=== PATIENT | male | born 1965 | race Caucasian/White ===

== ENCOUNTER → 2016-11-28 | Outpatient (CLI) | payer BC ==
[2016-11-28 16:19] LABS: BASO % 0.4 %; BASO ABS # 0.04 K/uL (0-0.2); COMPLETE YES; EOS % 1.4 %; HEMATOCRIT 45.1 % (42-52); IG% 0.8 %; LYMPH % 29.1 %; LYMPH ABS # 3.04 K/uL (1.2-3.4); MEAN CELL VOLUME 85.1 fL (80-100); MEAN CORPUSCULAR HEMOGLOBIN 28.7 pg (25-34); MEAN CORPUSCULAR HGB CONC 33.7 g/dl (32-36); MEAN PLATELET VOLUME 11.5 fL (7.4-10.4); MONO % 5.6 %; NEUT % 62.7 %; PLATELET COUNT 242 K/uL (130-400); WHITE BLOOD COUNT 10.44 K/uL (4.8-10.8)
[2016-11-28 16:52] LABS: BLOOD UREA NITROGEN 19 mg/dl (7-18); BUN/CREATININE RATIO 23.5 (10-20); CALCIUM 9.1 mg/dl (8.5-10.1); CARBON DIOXIDE 25 mmol/L (21-32); CHLORIDE 106 mmol/L (98-107); CREATININE 0.79 mg/dl (0.60-1.40); GLUCOSE 97 mg/dl (70-99); POTASSIUM 3.9 mmol/L (3.5-5.1); SODIUM 141 mmol/L (136-145)
== END ==
LOC: C.CPL 15:25
PROVIDERS: ATTEND Orthopaedic Surgery
DX: M25.512 Pain in left shoulder (principal)

== ENCOUNTER → 2016-12-20 | Day surgery (SDC) | payer OTHER, BC ==
[2016-12-05 08:13] VITALS: Ht 172.7 cm; Wt 109.1 kg
[~2016-12-20] VITALS: Ht 172.7 cm; Wt 109.1 kg
[~2016-12-20] MED LIST: ASPI81TA28 PO; ATROPINE SULFATE 0.1 MG/ML 5ML SYR IV PRN; BUPIVACAINE/EPINEPHRINE 0.25% 1:200,000 30 ML VIAL ONE; CEFAZOLIN 2000MG IV PUSH 10 ML IV SCH; DEXAMETHASONE SOD INJ 4 MG/ML VIAL ONE; EpINEphrine INJ 1MG/ML AMP 1 MG/ML AMP ONE; FENTANYL CITRATE INJ 50 MCG/1 ML 2 ML VIAL IV PRN; FENTANYL CITRATE INJ 50 MCG/1 ML 2 ML VIAL ONE; HYDR12.55 PO; KETO10TA PO; KETOROLAC TROMETHAMINE 30 MG/ML VIAL IV. PRN; LABETALOL HCL IV 5 MG/ML 20ML IV PRN; LACTATED RINGER'S 1000ML 1,000 ML IV SCH; LIDOCAINE HCL 2% 2 ML VIAL (20MG/ML) ONE; METO-478 PO; MIDAZOLAM HCL 1 MG/ML 2ML VIAL ONE; ONDANSETRON INJ 2 MG/ML 2 ML VIAL IV PRN; ONDANSETRON INJ 2 MG/ML 2 ML VIAL ONE; OXYC-57 PO; OXYCODONE/ACETAMINOPHEN 5-325 TAB PO PRN; PRAV20TA PO; PROPOFOL IV EMULSION 10 MG/ML 20 ML VIAL IV ONE; ROPIVACAINE 0.5% 5 MG/ML 30 ML VIAL ONE; SODIUM CHLORIDE 0.9% 1000ML 1,000 ML IV SCH; ZOLP10TA6 PO
--- NOTE | 2016-12-20 07:00 | History & Physical Bridge - [place] ---
H&P Re-Evaluation Bridge Note: I have examined the patient, reviewed the History & Physical and in the interval since the performance of the History & Physical I have noted the following changes of clinical significance: No changes noted
--- NOTE | 2016-12-20 12:09 | Discharge Instructions-SurgCtr ---
Discharge Instructions Date of Service Dec 20, 2016. Visit Reason for Visit: Left Shoulder Full Thickness Rotator Cuff Tear Discharge Discharge Diagnosis / Problem: SAME ABOVE Discharge Goals Goal(s): Decrease discomfort, Improve function Activity Recommendations Activity Limitations: as noted below Lifting Limitations: until after follow-up appointment Exercise/Sports Limitations: until after follow-up appointment Shower/Bathe: tomorrow Anesthesia . Post Anesthesia Instructions: If you have had General Anesthesia or IV Sedation: * Do not drive today. * Resume driving when surgeon permits. * Do not make important decisions or sign legal documents today. * Call surgeon for: 1. Temperature elevations greater than 101 degrees F. 2. Uncontrollable pain. 3. Excessive bleeding. 4. Persistent nausea and vomiting. 5. Medication intolerance (nausea, vomiting or rash). * For nausea and vomiting use only clear liquids such as: tea, soda, bouillon until nausea subsides, then gradually increase diet as tolerated. * If you have any concerns or questions, call your surgeon's office. If physician is unavailable and it is an emergency, call 911 or go to the nearest emergency room. . Instructions / Follow-Up Instructions / Follow-Up MEDICATIONS: * Resume previous medications unless instructed otherwise by your surgeon. * Always take pain medication on a full stomach or with food to avoid upset stomach. * Do not drink alcohol or drive while taking narcotics. * Ibuprofen or Tylenol may be taken if narcotic not needed. SPECIAL CARE INSTRUCTIONS: __ None _X_ Keep extremity elevated and iced x 48 hours; apply ice 20-30 minutes 8-10 times/day. May remove at night. __ Sling __24 hrs/day __ Remove at night _X_ Shoulder Immobilizer (MAY REMOVE AFTER 48 HOURS ONLY TO SHOWER AND FOR THERAPY) _X_ 24 hrs/day __ Remove at night _X_ Dressing __ Maintain until seen in office, may shower with plastic over site _X_ Remove dressings in 24-48 hours and then may shower _X_ Cover incisions with band-aids after showering __ Do not remove steri-strips Call physician if chills or temperature rises above 102 degrees or pain unrelieved by prescribed pain medications at . . Diet Recommendations Home Diet: no limitations Fluid Restriction: None Procedures Procedures Performed: Left Shoulder Arthroscopy, Medium Rotator Cuff Repair, Biceps Tenodesis, Acromioplasty Pending Studies Studies pending at discharge: no Work Instructions Return To Work: after follow-up Lifting Limitations: NO LIFTING WITH LEFT ARM Medical Emergencies . Who to Call and When: Medical Emergencies: If at any time you feel your situation is an emergency, please call 911 immediately. . Non-Emergent Contact Non-Emergency issues call your: Primary Care Provider Call Non-Emergent contact if: you have a fever, temperature is above 101.5 . . "Provider Documentation" section prepared by Jeremy Batista. .
[2016-12-20 13:00] VITALS: TEMP 36.6
[2016-12-20 13:45] VITALS: BP 149/97; PULSE 70; O2SAT 95
--- NOTE | 2016-12-20 13:45 | Anesthesia Progress Nt - [facility] ---
Anesthesia Post Op Note Date & Time Dec 20, 2016 at 13:44 Vital Signs Pain Intensity: 3.0 Vital Signs Past 12 Hours Date Time Temp Pulse Resp B/P (MAP) Pulse Ox O2 Delivery O2 Flow Rate FiO2 12/20/16 13:00 36.6 65 16 149/97 (114) 93 Room Air 12/20/16 12:51 162/109 12/20/16 12:49 36.4 68 16 162/109 93 Room Air 12/20/16 12:48 69 30 93 12/20/16 12:48 69 30 12/20/16 12:46 159/105 12/20/16 12:43 66 20 150/102 98 12/20/16 12:43 66 20 12/20/16 12:41 152/101 12/20/16 12:38 68 20 12/20/16 12:38 69 20 98 12/20/16 12:36 147/100 12/20/16 12:33 67 16 12/20/16 12:33 68 16 97 12/20/16 12:31 155/101 12/20/16 12:30 151/102 12/20/16 12:28 65 21 12/20/16 12:28 65 21 98 12/20/16 12:26 156/105 12/20/16 12:23 66 14 12/20/16 12:23 66 14 97 12/20/16 12:21 163/96 12/20/16 12:18 68 12 96 12/20/16 12:18 68 12 12/20/16 12:16 170/99 12/20/16 12:13 66 10 12/20/16 12:13 65 10 96 12/20/16 12:11 168/98 12/20/16 12:09 132/89 12/20/16 12:08 36.2 66 16 132/89 97 Mask 6 12/20/16 10:28 70 12/20/16 10:28 70 19 99 12/20/16 10:27 68 12/20/16 10:27 68 23 97 12/20/16 10:26 137/94 12/20/16 10:25 142/102 12/20/16 10:22 67 12/20/16 10:22 66 20 94 12/20/16 10:17 68 0 12/20/16 10:12 65 0 12/20/16 10:07 64 0 12/20/16 10:02 64 0 12/20/16 09:57 64 0 12/20/16 09:52 66 0 12/20/16 09:47 63 0 12/20/16 08:16 36.9 69 18 153/96 (115) 94 Room Air Notes Mental Status: alert / awake / arousable, participated in evaluation Pt Amnestic to Procedure: Yes Nausea / Vomiting: adequately controlled Pain: adequately controlled Airway Patency, RR, SpO2: stable & adequate BP & HR: stable & adequate Hydration State: stable & adequate Anesthetic Complications: no major complications apparent
--- NOTE | 2016-12-20 16:51 | OPERATIVE REPORT ---
DATE OF OPERATION: 12/20/2016 PREOPERATIVE DIAGNOSES: Medium sized left rotator cuff tear and biceps tendinopathy. POSTOPERATIVE DIAGNOSES: Same. PROCEDURE: Left shoulder diagnostic arthroscopy with limited debridement, acromioplasty, rotator cuff repair and arthroscopic biceps tenodesis. SURGEON: Dr. Rajiv Magana. MECHANICAL OXIDIZER: Pranay Batista PA-C, whose assistance was necessary for positioning of the arm and helping with instrumentation. ANESTHESIA: General with a left interscalene nerve block. COMPLICATIONS: None. CONDITION: Stable to PACU. 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 He was working on the couch using a piece of metal when he began to have significant pain in his left shoulder. He did report the incident. MRI and clinical examination were then diagnostic for medium sized rotator cuff tear. After failing conservative treatment, he elected to undergo rotator cuff repair. DESCRIPTION OF PROCEDURE: On 12/20/2016 he arrived at [facility] for the above procedure. He was seen in the preoperative holding area and the operative extremity was identified and signed. He was given a preoperative antibiotic and a left interscalene nerve block. He was taken back to the operating room, laid on the table in supine position and put under general anesthesia. He was put into the beachchair position. The left shoulder was prepped and draped in sterile fashion. Time-out was done and the patient and operative extremity was properly identified. A scope was introduced in the posterior portal. Diagnostic arthroscopy showed no cartilage damage to the humeral head or the glenoid. There was a little fraying of the anterior labrum and significant fraying of the long head of biceps tendon. There was a tear of the entire supraspinatus. The infraspinatus, teres minor and subscapularis were all checked and intact. An anterior portal was made. A shaver was used to do a limited debridement of the intraarticular structures and the biceps tendon was arthroscopically tenotomized for later tenodesis. A scope was then put into the subacromial space. A lateral portal was made. A shaver was used to do a complete subacromial and subdeltoid bursectomy. An ablator was used to tease the coracoacromial ligament off the undersurface of the acromion and a 5-0 thuan was used to complete an acromioplasty of a Bigliani type 3 acromion. A shaver was used to remove any excess debris and attention was turned to the rotator cuff. An additional anterolateral portal was made and Leonarda cannulas were placed in each of the lateral portals. A shaver was used to better define the rotator cuff tear. There was a medium size crescent-shaped rotator cuff tear. The greater tuberosity was prepared with a ring curette and a microfracture. The long head of the biceps tendon was then tagged with an Arthrex fiber link suture. Two medial row anchors were placed and the biceps tendon was incorporated into the anterior medial anchor. Each anchor was loaded with FiberTapes which were passed through the tendon at the anticipator articular margin. The fiber tapes were then brought down to 1 of 2 lateral row SwiveLock suture anchors. This gave a nice knotless SpeedBridge repair. Multiple pictures were taken. The scope was then placed back into the glenohumeral joint and the articular margin of the rotator cuff had been restored. Pictures were taken. Arthroscopic instruments were removed from the shoulder. Portal sites were closed with 3-0 nylon. He was then placed in a soft dressing and abduction arm sling. He was then extubated, transferred to a litter and taken to the postanesthesia care unit in stable condition. He tolerated the procedure well. I attest to the content of the Intraoperative Record and any orders documented therein. Any exception s are noted below.
--- NOTE | 2016-12-20 18:37 | [facility] Post Operative Brief Note ---
Immediate Operative Summary Operative Date Dec 20, 2016. Pre-Operative Diagnosis Left Shoulder Rotator Cuff Tear Post-Operative Diagnosis Same Procedure(s) Performed Left Shoulder Arthroscopy, Medium Rotator Cuff Repair, Biceps Tenodesis, Acromioplasty Surgeon Dr. Magana Chip Bin Operator Surgeon(s) Holly Btaista PA-C Estimated Blood Loss 5ml Findings as above Specimens None Complication(s) None Disposition Recovery Room / PACU
== END | disposition home or self-care (01) ==
LOC: X.SURG 08:02
PROVIDERS: ATTEND Orthopaedic Surgery
DX: S46.012A Strain of muscle(s) and tendon(s) of the rotator cuff of left shoulder, initial encounter (principal); M75.22 Bicipital tendinitis, left shoulder; I10 Essential (primary) hypertension; E78.00 Pure hypercholesterolemia, unspecified; X58.XXXA Exposure to other specified factors, initial encounter